=== PATIENT | male | born 1975 | race Caucasian/White ===

== ENCOUNTER 2020-04-20 08:25 | Emergency (ER) | payer SELFPAY ==
[2020-04-20] MEDS ORDERED: ASPIRIN (CHEWABLE) 81 MG TAB PO ONE (08:39)
[2020-04-20] MEDS ORDERED: SODIUM CHLORIDE 0.9% (FLUSH) 10 ML SYG IV PRN (08:39)
--- NOTE | 2020-04-20 09:12 | RAD ---
EXAM DESCRIPTION: Chest,1 View CLINICAL HISTORY: 44 years Male, chest pain and tachycardia COMPARISON: None. FINDINGS: One view/radiograph Heart size and pulmonary vessels are within normal limits. There is no pneumothorax or pleural effusion. The lungs are clear bilaterally. The soft tissues are unremarkable. No acute osseous findings. IMPRESSION: No acute cardiopulmonary abnormality. Electronically signed by: Adalberto Morfin MD 04/20/2020 9:11 AM CDT
--- NOTE | 2020-04-20 09:33 | ED.PDOC ---
History of Present Illness - General Chief Complaint: General Stated Complaint: Dizzy, Light headed Time Seen by Provider: 04/20/20 08:39 Source: patient, RN notes reviewed, Vital Signs reviewed Exam Limitations: no limitations - History of Present Illness Initial Comments: Patient is a 44-year-old white male who presents with complaints of dizziness and feeling fatigued. The symptoms started when he awoke this morning. Patient states that he is healthy. Approximately 2 months ago, was diagnosed with single episode of A. fib and was started on blood thinners and blood pressure medicine. This history of A. fib was after night of drinking and use of cocaine. Patient states that his PCP took him off his blood pressure medicine because it was making him feel worse. In discussion with his PCP, they state they have not taken him off his blood pressure medicine. During history of present illness, and obtaining a history, patient denied any drug use. Patient symptoms are worse when he gets up and moves around. Improved with rest. Patient denies any chest pain, shortness of breath, nausea, vomiting, diarrhea. Patient denies any blurry vision or vertigo. Timing/Duration: 1-3 hours Severity: moderate Improving Factors: rest Worsening Factors: movement Associated Symptoms: denies symptoms Allergies/Adverse Reactions: Allergies NO KNOWN ALLERGY Allergy (Verified 04/20/20 08:46) Home Medications: Ambulatory Orders Aspirin [Aspirin 81 Low Dose] 81 mg PO DAILY 04/20/20 Valsartan-Hydrochlorothiazide [Diovan Hct 80-12.5 mg] 1 tab PO DAILY #30 tab 04/20/20 Review of Systems - Review of Systems Constitutional: States: no symptoms reported, see HPI. Denies: chills, fever, malaise, weakness EENTM: States: no symptoms reported. Denies: eye pain, blurred vision, double vision Respiratory: States: no symptoms reported. Denies: cough, short of breath Cardiology: States: no symptoms reported. Denies: chest pain, palpitations, syncope Gastrointestinal/Abdominal: States: no symptoms reported. Denies: abdominal pain, constipation, diarrhea, nausea Genitourinary: States: no symptoms reported. Denies: dysuria, frequency Musculoskeletal: States: no symptoms reported. Denies: back pain, joint pain, neck pain Skin: States: no symptoms reported. Denies: change in color, rash Neurological: States: see HPI, other - dizziness Endocrine: States: no symptoms reported. Denies: increased hunger, increased thirst, increased urine Hematologic/Lymphatic: States: no symptoms reported. Denies: blood clots, easy bleeding All other Systems: Reviewed and Negative Past Medical History (General) - Patient Medical History Hx Seizures: No Hx Stroke: No Hx Dementia: No Hx Asthma: No Hx of COPD: No Hx Cardiac Disorders: Yes - Hx of Afib Hx Congestive Heart Failure: No Hx Pacemaker: No Hx Hypertension: Yes Hx Thyroid Disease: No Hx Diabetes: No Hx Gastroesophageal Reflux: No Hx Renal Disease: No Hx Cancer: No Hx Hepatitis C: No - Vaccination History Hx Tetanus, Diphtheria Vaccination: Yes Hx Influenza Vaccination: Yes - Social History Hx Tobacco Use: Yes Hx Alcohol Use: Yes Family Medical History - Family History Mother Family History: Unknown Living Status: Unknown Physical Exam - Physical Exam General Appearance: Alert, Anxious, Well Developed, Well Groomed, Well Hydrated, Well Nourished Eye Exam: bilateral normal Ears, Nose, Throat: hearing grossly normal, normal ENT inspection, normal pharynx Neck: non-tender, full range of motion, supple Respiratory: chest non-tender, lungs clear, normal breath sounds, no respiratory distress, no accessory muscle use, respiratory distress Cardiovascular/Chest: normal peripheral pulses, no edema, no gallop, no JVD, no murmur, tachycardia Peripheral Pulses: radial,right: 2+, radial,left: 2+ Gastrointestinal/Abdominal: normal bowel sounds, non tender, soft Back Exam: normal inspection, no CVA tenderness, no vertebral tenderness Extremity: normal range of motion, non-tender, other - mild pretibial edema. 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 04/20/20 12:04 Patient symptoms have completely resolved after IV fluids. Blood pressure still elevated and therefore will restart him on blood pressure medication. I will start him on an ARB with hydrochlorothiazide as I think this would be better tolerated for him. Patient voices understanding and agreement with plan of care. Patient is to follow-up with his regular doctor later this week. Abdiaziz Lozano M.D. #[id number] - Results/Orders Results/Orders: 04/20/20 08:39 URINE DRUG SCREEN, 7 ASSAY Stat Sodium Chloride 0.9% (Flush) [Saline Flush Syringe] 3 ml IV PRN PRN 04/20/20 08:45 EKG STAT 04/20/20 09:00 Pulse Ox Daily 04/20/20 09:39 Sodium Chloride 0.9% 1000ML [Ns 1000 ml] 1,000 ml IVS ONCE Laboratory Results - last 24 hr 04/20/20 04/20/20 08:48 08:48 WBC 5.8 RBC 4.77 Hgb 14.9 Hct 42.9 MCV 89.9 MCH 31.2 H MCHC 34.8 RDW 12.8 Plt Count 195 MPV 6.7 L Absolute Neuts (auto) 3.20 Absolute Lymphs (auto) 1.90 Absolute Monos (auto) 0.40 Absolute Eos (auto) 0.20 Absolute Basos (auto) 0.00 Neutrophils % 56.2 Lymphocytes % 32.2 Monocytes % 7.5 Eosinophils % 3.6 Basophils % 0.5 PT 9.8 INR < 1.00 PTT (SP) 22.0 D-Dimer, Quantitative 368.0 Sodium 140 Potassium 3.9 Chloride 104 Carbon Dioxide 26 Anion Gap 13.9 BUN 14 Creatinine 1.07 BUN/Creatinine Ratio 13.1 Random Glucose 146 H Serum Osmolality 282.5 Calcium 8.8 Magnesium 1.8 Total Bilirubin 1.5 H Direct Bilirubin 0.2 Indirect Bilirubin 1.3 H AST 34 ALT 42 Alkaline Phosphatase 85 Creatine Kinase 168 CK-MB (CK-2) 2.8 CK-MB (CK-2) % Not Reportable Troponin I < 0.02 Serum Total Protein 7.3 Albumin 4.4 EKG performed 20 April 2020 at 0832 hrs.: Sinus tachycardia 105 bpm, left atrial enlargement, incomplete right bundle branch block, borderline EKG. No comparison EKG available at this time. EXAM DESCRIPTION: Chest,1 View CLINICAL HISTORY: 44 years Male, chest pain and tachycardia COMPARISON: None. FINDINGS: One view/radiograph Heart size and pulmonary vessels are within normal limits. There is no pneumothorax or pleural effusion. The lungs are clear bilaterally. The soft tissues are unremarkable. No acute osseous findings. IMPRESSION: No acute cardiopulmonary abnormality. Electronically signed by: Adalberto Morfin MD 04/20/2020 9:11 AM Repeat troponin is negative at less than 0.2 - EKG/XRAY/CT CT Ordered: No CT Interpretation Call Back: No Departure - Departure Clinical Impression: Accelerated hypertension, Malaise and fatigue, Dehydration Time of Disposition: 12:10 Disposition: Discharge to Home or Self Care Condition: Good Departure Forms: ED Discharge - Pt. Copy, Patient Portal Self Enrollment Instructions: High Blood Pressure (DC) Referrals: Branden Schroeder MD [Primary Care Provider] - 1-5 Days Prescriptions: Valsartan-Hydrochlorothiazide [Diovan Hct 80-12.5 mg] 1 tab PO DAILY #30 tab Home Medications: Ambulatory Orders Aspirin [Aspirin 81 Low Dose] 81 mg PO DAILY 04/20/20 Valsartan-Hydrochlorothiazide [Diovan Hct 80-12.5 mg] 1 tab PO DAILY #30 tab 04/20/20
[2020-04-20] MEDS ORDERED: SODIUM CHLORIDE 0.9% 1000ML 1,000 ML IVS ONE (09:39)
[2020-04-20 11:17] VITALS: O2SAT 97
[2020-04-20 12:23] VITALS: BP 144/93; TEMP 99
== END 2020-04-20 12:23 | disposition home or self-care (01) ==
LOC: ER 08:25
DX: I10 Essential (primary) hypertension (principal); E86.0 Dehydration; R42 Dizziness and giddiness; R53.83 Other fatigue; I45.10 Unspecified right bundle-branch block; I48.91 Unspecified atrial fibrillation; Z79.82 Long term (current) use of aspirin
CPT/HCPCS: 36415; 71045; 80048; 80076; 80307; 81001; 82550; 82553; 84484; 85025; 85379; 85610; 85730; 93005; J7030